=== PATIENT | male | born 1935 | race Caucasian/White ===

== ENCOUNTER 2017-01-09 07:21 | Day surgery (SDC) | payer MEDICARE, BC ==
[2017-01-09] MEDS ORDERED: ACETAMINOPHEN 325 MG ONE (07:36)
[2017-01-09] MEDS: CYCLOPENTOLATE 1% SOL ONE ×2 (07:51→08:10)
[2017-01-09] MEDS: PROPARACAINE HCL 0.5% OPHTHALMIC SOL ONE ×3 (07:51→09:09)
[2017-01-09] MEDS: PHENYLEPHRINE HCL 10% OPHTHAL SOL ONE ×2 (07:51→08:09)
[2017-01-09] MEDS ORDERED: FENTANYL CITRATE 50 MCG/ML SOL ONE (08:30)
[2017-01-09] MEDS ORDERED: MIDAZOLAM 2 MG/2 ML SOL ONE (08:30)
[2017-01-09] MEDS ORDERED: TRYPAN BLUE 0.5 ML SOL IO ONE (09:01)
[2017-01-09] MEDS ORDERED: LIDOCAINE HCL 1% MPF SOL ONE (09:01)
[2017-01-09] MEDS ORDERED: POVIDONE IODINE 5% SOL ONE (09:01)
[2017-01-09] MEDS ORDERED: BSS W/ 0.25MG P.F. EPI 1 BOTTLE ONE (09:01)
[2017-01-09] MEDS ORDERED: ACETAZOLAMIDE 500 MG CER ONE (09:38)
[2017-01-09 10:13] VITALS: BP 121/69; PULSE 84; RESP 20; TEMP 97.6; O2SAT 94
== END 2017-01-09 10:25 | disposition home or self-care (01) | DRG 125 ==
LOC: SURG 07:21
PROVIDERS: ATTEND Ophthalmology
DX: H25.9 Unspecified age-related cataract (principal); H21.81 Floppy iris syndrome
CPT/HCPCS: 82962; J2250; J3010; J2001

== ENCOUNTER 2017-06-25 08:00 | Outpatient (CLI) | payer MEDICARE, BC ==
[2017-01-09 10:13] VITALS: O2SAT 94
== END 2017-06-25 08:01 | disposition home or self-care (01) | DRG 556 ==
LOC: CONVCARE 08:00
PROVIDERS: ATTEND Orthopaedic Surgery
DX: M25.552 Pain in left hip (principal)

== ENCOUNTER 2018-12-30 18:52 | Emergency (ER) | payer MEDICARE, BC ==
[2018-12-30 19:08] VITALS: TEMP 96.5
[2018-12-30] MEDS ORDERED: HYDROMORPHONE HCL 2 MG/ML SOL IM ONE (19:56)
[2018-12-30] MEDS ORDERED: HYDROMORPHONE 1 MG/ML SYRINGE ONE (20:11)
[2018-12-30 22:06] VITALS: BP 144/86; PULSE 89; RESP 20; O2SAT 96
== END 2018-12-30 21:15 | disposition home or self-care (01) | DRG 552 ==
LOC: ED 18:52
DX: M47.26 Other spondylosis with radiculopathy, lumbar region (principal); E11.9 Type 2 diabetes mellitus without complications
CPT/HCPCS: 72120; 96372; 99283; J1170

== ENCOUNTER 2019-01-28 07:28 | Day surgery (SDC) | payer MEDICARE, BC ==
[2019-01-28] MEDS ORDERED: DIAZEPAM 5 MG TAB ONE (07:41)
[2019-01-28 08:00] VITALS: RESP 16
[2019-01-28] MEDS ORDERED: TRIAMCINOLONE ACETONIDE 40 MG/ML SUS ONE (08:02)
[2019-01-28] MEDS ORDERED: BUPIVACAINE HCL 0.25% MPF 30 ML SOL INFIL ONE (08:02)
[2019-01-28 08:42] VITALS: BP 135/80; PULSE 80; TEMP 97.5; O2SAT 96
== END 2019-01-28 09:07 | disposition home or self-care (01) | DRG 554 ==
LOC: SURG 07:28
PROVIDERS: ATTEND Nurse Anesthetist, Certified Registered
DX: M12.9 Arthropathy, unspecified (principal); E11.9 Type 2 diabetes mellitus without complications
CPT/HCPCS: 82962; A9270-GY; J3300

== ENCOUNTER 2019-03-18 08:32 | Day surgery (SDC) | payer MEDICARE, BC ==
[2019-03-18] MEDS ORDERED: DIAZEPAM 5 MG TAB ONE (09:04)
[2019-03-18] MEDS ORDERED: DIAZEPAM 5 MG TAB PO ONE (09:06)
[2019-03-18] MEDS ORDERED: BUPIVACAINE HCL 0.25% MPF 30 ML SOL INFIL ONE (09:35)
[2019-03-18] MEDS ORDERED: TRIAMCINOLONE ACETONIDE 40 MG/ML SUS ONE (09:35)
[2019-03-18 09:57] VITALS: BP 126/77; PULSE 77; RESP 18; TEMP 97.4; O2SAT 96
== END 2019-03-18 10:46 | disposition home or self-care (01) | DRG 556 ==
LOC: SURG 08:32
PROVIDERS: ATTEND Nurse Anesthetist, Certified Registered
DX: M25.552 Pain in left hip (principal); M16.12 Unilateral primary osteoarthritis, left hip; E11.9 Type 2 diabetes mellitus without complications
CPT/HCPCS: A9270-GY; J3300

== ENCOUNTER 2019-04-25 07:39 | Day surgery (SDC) | payer MEDICARE, BC ==
[2019-04-25] MEDS ORDERED: DIAZEPAM 5 MG TAB ONE (07:43)
[2019-04-25] MEDS ORDERED: DEXAMETHASONE SOD PHOS PF 10 MG/ML SOL IJ ONE (08:11)
[2019-04-25] MEDS ORDERED: BUPIVACAINE HCL 0.25% MPF 30 ML SOL INFIL ONE (08:11)
[2019-04-25 09:03] VITALS: BP 132/76; PULSE 80; RESP 20; TEMP 97.1; O2SAT 97
== END 2019-04-25 09:48 | disposition home or self-care (01) | DRG 552 ==
LOC: SURG 07:39
PROVIDERS: ATTEND Nurse Anesthetist, Certified Registered
DX: M99.53 Intervertebral disc stenosis of neural canal of lumbar region (principal); E11.9 Type 2 diabetes mellitus without complications
CPT/HCPCS: 82962; A9270-GY; J1100